=== PATIENT | female | born 1975 | race Caucasian/White ===

== ENCOUNTER 2018-07-10 17:23 | Inpatient (IN) | payer OTHER ==
[~2018-07-10] VITALS: Ht 166.4 cm; Wt 66.4 kg
[2018-07-10 18:56] LABS: MEAN CORPUSCULAR HEMOGLOBIN 18.4 pg (27.0-33.0); MEAN CORPUSCULAR HGB CONC 27.1 g/dL (32.0-36.0); MEAN CORPUSCULAR VOLUME 67.8 fL (79-99); NUCLEATED RED BLOOD CELLS 0.1 % (0.0-0.19); PLATELET COUNT (AUTO) 442 K/uL (130-400); RED BLOOD CELL COUNT(AUTO) 2.16 MIL/uL (4.00-5.50); RED CELL DISTRIBUTION WIDTH 21.9 % (11.0-15.5); WHITE BLOOD COUNT (AUTO) 8.4 K/uL (4.8-10.8)
[2018-07-10 18:59] LABS: HEMATOCRIT 14.6 % (36-48)
[2018-07-10 19:05] LABS: CREATININE 0.4 mg/dL (0.5-1.5); POTASSIUM 3.4 mmol/L (3.5-5.1)
[2018-07-10 19:07] LABS: INR 0.89 (0.85-1.15); PARTIAL THROMBOPLASTIN TIME 24.6 SEC (26.3-35.5); PROTHROMBIN TIME 9.4 SEC (9.6-11.6)
[2018-07-10 19:10] LABS: ALBUMIN 1.6 g/dL (3.5-5.0); BILIRUBIN,TOTAL 0.1 mg/dL (0.2-1.0)
[2018-07-10] MEDS ORDERED: ONDANSETRON HCL 4 MG/2 ML VIAL ONE (19:19)
[2018-07-10] MEDS ORDERED: MORPHINE SULFATE 4 MG/1ML SYG ONE ×2 (19:19→21:43)
[2018-07-10] MEDS ORDERED: SODIUM CHLORIDE 0.9% 1000ML 1,000 ML IV ONE (19:19)
[2018-07-10 19:29] LABS: RETICULOCYTE % (AUTO) 3.82 % (0.42-2.23)
[2018-07-10 19:44] LABS: EOSINOPHILS % (MANUAL) 1 % (1-6); LYMPHOCYTES % (MANUAL) 24 % (22-44); MONOCYTES % (MANUAL) 10 % (2-9); SEGMENTED NEUTROPHILS % 65 % (40-70)
[2018-07-10 19:45] LABS: MAN.DIFF COMMENT-IMPRESSION MANUAL DIFFERENTIAL
[2018-07-10 19:46] LABS: PLATELET MORPHOLOGY COMMENT LARGE PLTS PRESENT
[2018-07-10 19:49] LABS: % IRON SATURATION 1.7 % (22-44)
[2018-07-10 19:53] LABS: APPEARANCE,URINE Clear (CLEAR); BILIRUBIN,URINE Negative (NEGATIVE); COLOR,URINE Yellow (YELLOW); GLUCOSE, URINE (UA) Negative (NEGATIVE); KETONES,URINE Negative (NEGATIVE); LEUKOCYTE ESTERASE ,URINE Negative (NEGATIVE); NITRATE,URINE Negative (NEGATIVE); OCCULT BLOOD,URINE Negative (NEGATIVE); PROTEIN,URINE Negative (NEGATIVE)
[2018-07-10 19:55] LABS: HCG,QUAL RESULT NEGATIVE (NEGATIVE)
[2018-07-10] MEDS ORDERED: ACETAMINOPHEN 325 MG TAB PO PRN ×2 (21:45)
[2018-07-11 00:25] VITALS: BP 122/74
--- NOTE | 2018-07-11 00:35 | NUR ---
ADMIT PT ADMITTED TO ROOM 328, CONVERSANT AND COHERENT. VERBALIZES GETTING DIZZINESS WITH AMBULATION. CLAIMS OF INTERMITTENT ABDOMINAL PAINS. ADMISSION CARE DONE. ADMISSION DATA BASE COMPLETED. EXPLAINED TO PT THAT PAIN MEDICATION IS NOT YET DUE BUT WILL RE-ASSESS PT WHEN MORPHINE IS DUE. PLACED PT ON NPO, INSTRUCTED. ORIENTED TO ROOM AND UNIT. FALL PRECAUTIONS INITIATED. CALL LIGHT WITHIN REACH. IN FOR MORE CARE AND MANAGEMENT. Addendum: 07/11/18 at 0219 by RADHA STERLING RN RN Amended: Links added.
[2018-07-11] MEDS: METRONIDAZOLE 500MG/100ML BAG 100 ML IV SCH ×4 (00:59→20:45)
[2018-07-11] MEDS: LACTATED RINGERS 1000ML 1,000 ML IV SCH ×2 (00:59→06:39)
[2018-07-11] MEDS: ZOSYN 3.375GM+NS 50ML 50 ML IV SCH ×4 (01:00→23:07)
--- NOTE | 2018-07-11 01:00 | NUR ---
IV MEDS STARTED PT ON IVF OF NS REGULATED AT 100CC/HR. STARTED ON IV FLAGYL AND IV ZOSYN AT THIS TIME. PT TOLERATING MEDS WELL. KEPT RESTED.
[2018-07-11] MEDS ORDERED: FERR-82 PO (01:12)
[2018-07-11] MEDS ORDERED: PREN-64 PO (01:12)
[2018-07-11] MEDS ORDERED: LEVO25TA54 PO (01:12)
[2018-07-11] MEDS: MORPHINE SULFATE 4 MG/1ML SYG IV PRN ×6 (01:36→23:09)
--- NOTE | 2018-07-11 01:36 | NUR ---
PAIN PT STILL HAVING ABDOMINAL PAINS. MEDICATED WITH MORPHINE IV. KEPT COMFORTABLE IN BED. CHECKED PT'S V/S, STABLE. SECOND UNIT OF PRBC CHECKED WITH ALLA VAZQUEZ. STARTED INFUSION. WILL MONITOR CLOSELY.
--- NOTE | 2018-07-11 02:15 | NUR ---
RE-ASSESS PT SLEEPING FAIRLY AT THIS TIME, BREATHING WITH EASE ON ROOM AIR. PT TOLERATING BLOOD TRANSFUSION WELL. V/S MONITORED, STABLE. NO UNTOWARD S/SX NOTED.
[2018-07-11 04:22] VITALS: BP 93/55
[2018-07-11] MEDS: ONDANSETRON HCL 4 MG/2 ML VIAL IV PRN ×3 (05:29→20:45)
--- NOTE | 2018-07-11 05:35 | NUR ---
COMPLETED SECOND UNIT OF BLOOD COMPLETED WITHOUT ANY UNTOWARD S/SX. V/S MONITORED, STABLE. RE-STARTED ON IVF OF LR REGULATED AT 100CC/HR. DUE MEDS ADMINISTERED AND MORPHINE AND ZOFRAN IV GIVEN FOR ABDOMINAL PAINS AND NAUSEA. KEPT COMFORTABLE IN BED. WILL RE-ASSESS PT.
[2018-07-11 07:00] VITALS: BP 102/62
[2018-07-11 08:06] LABS: HEMATOCRIT 21.7 % (36-48); MEAN CORPUSCULAR HEMOGLOBIN 21.2 pg (27.0-33.0); MEAN CORPUSCULAR HGB CONC 29.1 g/dL (32.0-36.0); MEAN CORPUSCULAR VOLUME 72.7 fL (79-99); NUCLEATED RED BLOOD CELLS 0.1 % (0.0-0.19); PLATELET COUNT (AUTO) 383 K/uL (130-400); RED BLOOD CELL COUNT(AUTO) 2.99 MIL/uL (4.00-5.50); RED CELL DISTRIBUTION WIDTH 24.5 % (11.0-15.5); WHITE BLOOD COUNT (AUTO) 6.5 K/uL (4.8-10.8)
[2018-07-11 08:18] LABS: CREATININE 0.5 mg/dL (0.5-1.5); POTASSIUM 3.3 mmol/L (3.5-5.1)
--- NOTE | 2018-07-11 08:26 | NUR ---
CRITICAL VALUE OF HGB 6.3 NOTIFIED ORDAINED MINISTER-AJ, PT JUST RECEIVED 2 UNITS OF PRBC, WILL BE ON STANDBY FOR FURTHER ORDERS
[2018-07-11] MEDS: FAMOTIDINE/PF 20 MG/2 ML VIAL IV SCH ×2 (09:22→20:45)
[2018-07-11] MEDS ORDERED: FUROSEMIDE 10 MG/ML 4ML VIAL IV SCH (10:45)
[2018-07-11] MEDS ORDERED: POTASSIUM CHLORIDE 10% ELIXIR 20 MEQ/15 ML UDCUP PO PRN (10:45)
[2018-07-11] MEDS ORDERED: LIDOCAINE HCL-MPF 1% 2ML VIAL IVP PRN (10:45)
[2018-07-11] MEDS ORDERED: POTASSIUM CHLORIDE 10MEQ/100ML 100 ML IV PRN (10:45)
[2018-07-11] MEDS ORDERED: POTASSIUM CHLORIDE 20 MEQ ERTAB PO PRN (10:45)
[2018-07-11 11:00] VITALS: BP 117/75
[2018-07-11] MEDS: PRENATAL VITAMIN RX TABLET PO SCH (12:37)
[2018-07-11] MEDS: FERROUS SULFATE 325 MG TABLET.DR PO SCH (12:37)
[2018-07-11 16:00] VITALS: BP 113/72
[2018-07-11] MEDS ORDERED: SODIUM CHLORIDE 0.9% 250 ML IV ONE (16:29)
[2018-07-11 19:25] VITALS: BP 128/78
[2018-07-12 00:30] VITALS: BP 124/76
[2018-07-12] MEDS: ONDANSETRON HCL 4 MG/2 ML VIAL IV PRN ×3 (03:04→21:50)
[2018-07-12] MEDS: MORPHINE SULFATE 4 MG/1ML SYG IV PRN ×5 (03:05→21:54)
[2018-07-12 04:35] VITALS: BP 135/80
[2018-07-12 05:43] LABS: BASOPHILS % (AUTO) 1.2 % (0.0-5.0); EOSINOPHILS % (AUTO) 5.7 % (0.0-8.0); HEMATOCRIT 27.7 % (36-48); LYMPHOCYTES % (AUTO) 21.4 % (21.0-51.0); MEAN CORPUSCULAR HEMOGLOBIN 23.3 pg (27.0-33.0); MEAN CORPUSCULAR HGB CONC 30.2 g/dL (32.0-36.0); MEAN CORPUSCULAR VOLUME 77.1 fL (79-99); MONOCYTES % (AUTO) 15.2 % (3.0-13.0); NEUTROPHILS % (AUTO) 56.5 % (40.0-77.0); PLATELET COUNT (AUTO) 330 K/uL (130-400); RED CELL DISTRIBUTION WIDTH 24.7 % (11.0-15.5); WHITE BLOOD COUNT (AUTO) 6.8 K/uL (4.8-10.8)
[2018-07-12] MEDS: METRONIDAZOLE 500MG/100ML BAG 100 ML IV SCH ×3 (05:57→21:54)
[2018-07-12 06:05] LABS: CREATININE 0.5 mg/dL (0.5-1.5); POTASSIUM 3.7 mmol/L (3.5-5.1)
[2018-07-12] MEDS: LEVOTHYROXINE 25 MCG TABLET PO SCH (06:36)
[2018-07-12] MEDS: FERROUS SULFATE 325 MG TABLET.DR PO SCH (07:56)
[2018-07-12] MEDS: PRENATAL VITAMIN RX TABLET PO SCH (07:57)
[2018-07-12] MEDS: ZOSYN 3.375GM+NS 50ML 50 ML IV SCH ×2 (07:57→16:58)
[2018-07-12] MEDS: FAMOTIDINE/PF 20 MG/2 ML VIAL IV SCH ×2 (07:57→21:49)
[2018-07-12 08:00] VITALS: BP 120/80
[2018-07-12] MEDS ORDERED: ZOLPIDEM TARTRATE 5 MG TAB PO PRN (08:30)
[2018-07-12 11:00] VITALS: BP 116/79
--- NOTE | 2018-07-12 14:49 | NUR ---
INITIAL: Met with pt to discuss dcp. Pt states that she lives w her family. Prior to admission she was independent w ambulation and ADls. She does not own any DME or receive any services. Per pt she feels safe and comfortable to return home at [place]. will continue to follow and wait for Md recommendations. Addendum: 07/12/18 at 1451 by KAELA INGRAM Amended: Links added.
[2018-07-12 16:00] VITALS: BP 138/80
[2018-07-12 19:32] VITALS: BP 130/77
[2018-07-13] VITALS (7 sets, daily range): BP systolic 112–147; BP diastolic 76–95
[2018-07-13] MEDS: ZOSYN 3.375GM+NS 50ML 50 ML IV SCH ×3 (00:34→15:59)
[2018-07-13] MEDS: MORPHINE SULFATE 4 MG/1ML SYG IV PRN ×5 (01:50→21:04)
[2018-07-13 05:34] LABS: BASOPHILS % (AUTO) 1.7 % (0.0-5.0); HEMATOCRIT 28.7 % (36-48); LYMPHOCYTES % (AUTO) 24.3 % (21.0-51.0); MEAN CORPUSCULAR HEMOGLOBIN 23.7 pg (27.0-33.0); MEAN CORPUSCULAR HGB CONC 30.2 g/dL (32.0-36.0); MEAN CORPUSCULAR VOLUME 78.5 fL (79-99); MONOCYTES % (AUTO) 17.4 % (3.0-13.0); NEUTROPHILS % (AUTO) 50.6 % (40.0-77.0); PLATELET COUNT (AUTO) 320 K/uL (130-400); RED BLOOD CELL COUNT(AUTO) 3.65 MIL/uL (4.00-5.50); RED CELL DISTRIBUTION WIDTH 24.9 % (11.0-15.5); WHITE BLOOD COUNT (AUTO) 5.5 K/uL (4.8-10.8)
[2018-07-13] MEDS: METRONIDAZOLE 500MG/100ML BAG 100 ML IV SCH ×3 (05:34→22:27)
[2018-07-13] MEDS: LEVOTHYROXINE 25 MCG TABLET PO SCH (05:35)
[2018-07-13] MEDS: ONDANSETRON HCL 4 MG/2 ML VIAL IV PRN ×3 (05:36→21:03)
[2018-07-13 05:53] LABS: CREATININE 0.4 mg/dL (0.5-1.5)
[2018-07-13] MEDS: FAMOTIDINE/PF 20 MG/2 ML VIAL IV SCH ×2 (10:21→21:04)
[2018-07-13] MEDS: FERROUS SULFATE 325 MG TABLET.DR PO SCH (10:21)
[2018-07-13] MEDS: PRENATAL VITAMIN RX TABLET PO SCH (10:21)
--- NOTE | 2018-07-13 14:34 | NUR ---
DR. MATHIAS AWARE OF THE +3 PITTING EDEMA TO BLE. WILL SEE PATIENT LATER THIS DAY.
[2018-07-13] MEDS ORDERED: FUROSEMIDE 10 MG/ML 2ML VIAL IV SCH (19:45)
[2018-07-13] MEDS ORDERED: COMPOUND IV MISC 1 EACH IVSOLN MISC PRN (20:30)
[2018-07-13] MEDS: LUBIPROSTONE 24 MCG CAP PO SCH (21:04)
[2018-07-13] MEDS: ALBUMIN (HUMAN) 25% 50 ML IV SCH (21:04)
[2018-07-13] MEDS: FUROSEMIDE 10 MG/ML 2ML VIAL IV SCH (22:27)
[2018-07-14] MEDS: ZOSYN 3.375GM+NS 50ML 50 ML IV SCH ×2 (00:31→10:16)
[2018-07-14] MEDS: MORPHINE SULFATE 4 MG/1ML SYG IV PRN ×4 (01:26→14:03)
[2018-07-14 03:00] VITALS: BP 134/86
[2018-07-14] MEDS: METRONIDAZOLE 500MG/100ML BAG 100 ML IV SCH ×2 (05:54→14:00)
[2018-07-14] MEDS: LEVOTHYROXINE 25 MCG TABLET PO SCH (05:54)
[2018-07-14] MEDS: ALBUMIN (HUMAN) 25% 50 ML IV SCH ×3 (05:54→14:11)
[2018-07-14] MEDS: ONDANSETRON HCL 4 MG/2 ML VIAL IV PRN ×2 (05:55→14:03)
[2018-07-14] MEDS: FUROSEMIDE 10 MG/ML 2ML VIAL IV SCH ×2 (07:05→14:00)
[2018-07-14 08:00] VITALS: BP 127/84
[2018-07-14] MEDS ORDERED: IRON SUCROSE COMPLEX 100 MG in SODIUM CHLORIDE 0.9% 50 ML IV SCH (09:00)
[2018-07-14] MEDS: FAMOTIDINE/PF 20 MG/2 ML VIAL IV SCH (10:16)
[2018-07-14] MEDS: PRENATAL VITAMIN RX TABLET PO SCH (10:16)
[2018-07-14] MEDS: LUBIPROSTONE 24 MCG CAP PO SCH (10:18)
[2018-07-14 11:30] VITALS: BP 113/79
[2018-07-14 15:28] VITALS: BP 116/83
--- NOTE | 2018-07-14 18:00 | NUR ---
PATIENT DISCHARGED HOME USING TEACH BACK TECHNIQUE RE; NEW MEDS, HOME MEDS, S/S TO WATCH FOR AND WHEN TO CALL MD OR 911. AOX3, VERBALIZES UNDERSTANDING BY STATING I WILL CONTINUE IRON SUPPLEMENTS AND FOLLOW UP WITH PRIMARY IF MY SHORTNESS OF BREATH DOES OR CHEST PAIN DOES NOT GO AWAY WITH REST I WILL CALL 911. DUE TO SYMPTOMATIC ANEMIA. IV OUT INTACT, NO DISTRESS. RX GIVEN FOR PAIN. FOLLOW UP WITH DIO BRUNER PAC [phone] WITHIN 7 DAYS OF DISCHARGE FROM HOSPITAL. NO APPOINTMENT NECESSARY, CLINIC IS WALKIN. [address] [facility] [id number]. PLEASE BRING MEDICATIONS AND DISCHARGE INFORMATION TO APPOINTMENT Please refer to medication reconciliation sheet for full details on, medications, doses, and frequency of new medications. Discontinued and, continued home medications.> DC FOLLOW UP: <Patient to follow-up with her primary care physician, IRVIN Cardoso,, within 7 days for transition visit CALL 911 IF SHORTNESS OF BREATH OR CHEST PAIN DOES NOT RESOLVE WITH REST.
[2018-07-16] MEDS ORDERED: EPOETIN ALFA 10,000 UNIT/ML VIAL SQ SCH (09:00)
== END 2018-07-14 18:10 | disposition home or self-care (01) | DRG 391 ==
LOC: EDH 17:23 → OBSVTOIN 17:24 → EDHIP 17:24 → UNDOADMOB 21:15 → 3DH 23:33 → EDHIP 23:33
PROVIDERS: ADMIT Internal Medicine; ATTEND Internal Medicine
PROC: 30233N1 Transfusion of Nonautologous Red Blood Cells into Peripheral Vein, Percutaneous Approach (ICD-10-PCS; principal; 2018-07-10)
DX: K59.03 Drug induced constipation (principal); E43 Unspecified severe protein-calorie malnutrition; F17.210 Nicotine dependence, cigarettes, uncomplicated; Z68.24 Body mass index [BMI] 24.0-24.9, adult; E03.9 Hypothyroidism, unspecified; E87.6 Hypokalemia; D50.9 Iron deficiency anemia, unspecified; T40.2X5A Adverse effect of other opioids, initial encounter; Z85.89 Personal history of malignant neoplasm of other organs and systems; Z90.49 Acquired absence of other specified parts of digestive tract; Z90.711 Acquired absence of uterus with remaining cervical stump; Y92.89 Other specified places as the place of occurrence of the external cause
CPT/HCPCS: 36415; 36430; 71045; 74176; 80048; 80053; 81003; 81025; 82550; 82607; 82728; 83010; 83690; 84484; 84702; 85025; 85027; 85610; 85730; 86850; 86900; 86901; 86922; 93005; 99291; G0378; J1756; J1940; J2270; J2405; J2543; J3490; J7030; J7120; P9016; P9047

== ENCOUNTER 2018-08-21 12:02 | Emergency (ER) | payer SELFPAY ==
[~2018-08-21 12:02] MED LIST: FERR-82 PO; LEVO25TA54 PO; PREN-64 PO
[2018-08-21 12:32] LABS: APPEARANCE,URINE Clear (CLEAR); BILIRUBIN,URINE Negative (NEGATIVE); COLOR,URINE Dark Yellow (YELLOW); GLUCOSE, URINE (UA) Negative (NEGATIVE); KETONES,URINE Negative (NEGATIVE); LEUKOCYTE ESTERASE ,URINE Negative (NEGATIVE); NITRATE,URINE Negative (NEGATIVE); OCCULT BLOOD,URINE Negative (NEGATIVE); PH,URINE 5.5 (5.0-8.0); PROTEIN,URINE Negative (NEGATIVE)
[2018-08-21 12:44] LABS: BASOPHILS % (AUTO) 1.3 % (0.0-5.0); EOSINOPHILS % (AUTO) 1.5 % (0.0-8.0); LYMPHOCYTES % (AUTO) 20.3 % (21.0-51.0); MEAN CORPUSCULAR HEMOGLOBIN 26.7 pg (27.0-33.0); MEAN CORPUSCULAR HGB CONC 31.6 g/dL (32.0-36.0); MEAN CORPUSCULAR VOLUME 84.5 fL (79-99); NEUTROPHILS % (AUTO) 60.9 % (40.0-77.0); PLATELET COUNT (AUTO) 371 K/uL (130-400); RED BLOOD CELL COUNT(AUTO) 3.67 MIL/uL (4.00-5.50); WHITE BLOOD COUNT (AUTO) 4.6 K/uL (4.8-10.8)
[2018-08-21 12:52] LABS: BACTERIA,URINE Moderate /HPF (None Seen); MUCUS,URINE Moderate LPF (None Seen); RBC,URINE 0-1 /HPF (0-1)
[2018-08-21 12:53] LABS: WBC,URINE 0-1 /HPF (0-1)
[2018-08-21] MEDS ORDERED: ONDANSETRON HCL 4 MG/2 ML VIAL ONE (12:59)
[2018-08-21] MEDS ORDERED: KETOROLAC TROMETHAMINE 15MG/ML ONE ×2 (12:59→13:59)
[2018-08-21 13:01] LABS: CREATININE 0.4 mg/dL (0.5-1.5); POTASSIUM 4.4 mmol/L (3.5-5.1)
[2018-08-21 13:05] LABS: ALBUMIN 3.3 g/dL (3.5-5.0); BILIRUBIN,DIRECT 0.1 mg/dL (0.0-0.3); BILIRUBIN,TOTAL 0.3 mg/dL (0.2-1.0); TOTAL PROTEIN, SERUM 6.7 g/dL (6.0-8.3)
[2018-08-21] MEDS ORDERED: IOHEXOL-350 75 ML VIAL IV ONE (13:24)
[2018-08-21] MEDS ORDERED: METOCLOPRAMIDE 10 MG/2 ML VIAL ONE (13:59)
== END 2018-08-21 14:59 | disposition home or self-care (01) ==
LOC: EDH 12:02
DX: K59.00 Constipation, unspecified (principal); G89.29 Other chronic pain; R10.84 Generalized abdominal pain; R11.2 Nausea with vomiting, unspecified; E07.9 Disorder of thyroid, unspecified; Z90.710 Acquired absence of both cervix and uterus; Z72.0 Tobacco use
CPT/HCPCS: 36415; 74177; 80053; 80076; 81001; 81025; 82150; 83690; 85025; 96361; 96374; 96375; 96376; 99285; J1885 ×2; J2405; J2765; Q9967